=== PATIENT | female | born 1995 | race Caucasian/White ===

== ENCOUNTER 2016-10-21 11:18 | Emergency (ER) | payer OTHER ==
[~2016-10-21] VITALS: Ht 170.2 cm; Wt 86.6 kg
[2016-10-21 12:19] LABS: MICROSCOPIC INDICATED? NO (NO)
[2016-10-21] MEDS ORDERED: IBUPROFEN 800 MG TAB PO ONE (12:30)
[2016-10-21] MEDS ORDERED: ACETAMINOPHEN TAB 650MG DOSE (2X325MG) PO ONE (12:30)
[2016-10-21] MEDS ORDERED: NS 1,000 ML IV ONE (14:15)
--- NOTE | 2016-10-21 14:17 | REP ---
PELVIC SONOGRAPHY: HISTORY: Severe cervical and uterine pain, question IUD placement position. FINDINGS: Transabdominal and transvaginal scanning are performed. Uterine dimensions are normal at 6.4 x 3.2 x 4.6 cm. A shadowing echogenic structure in the endometrium representing the IUD is seen in a linear fashion in the upper fundus. This does appear to extend beyond the confines of the endometrium in the fundal myometrium. Furthermore we were not able to define the T-shaped to the IUD. Rather it appeared simply linear. We could not see the crossbars. Trace of free fluid is seen. Normal ovaries are seen. Right ovary dimensions are 3.5 x 2.7 x 3.4 cm. Left ovary measures 2.4 x 2.4 by low 2.0 cm. IMPRESSION: A linear limb of an IUD is felt to be in the upper uterine fundus penetrating into the myometrium. The "T" cross member of the IUD could not be identified. KUB could be considered to confirm the shape of the IUD. Normal ovaries. No abnormal fluid collection. Signed by Eder Parekh MD 10/21/2016 03:25 P
[2016-10-21 14:53] LABS: BASO % 0.2 % (0.0-1.0); EOS # 0.1 K/mm3 (0.0-0.50); EOS % 1.3 % (0.0-3.0); LARGE UNSTAINED CELL # 0.1 K/mm3 (0.0-0.4); LYMPH # 1.4 K/mm3 (1.5-6.5); LYMPH % 12.2 % (24.0-44.0); MEAN CORPUSCULAR HEMOGLOBIN 31.6 pg (27.0-33.0); MEAN CORPUSCULAR HGB CONC 34.8 g/dl (32.0-36.5); MEAN CORPUSCULAR VOLUME 90.8 fl (80.0-96.0); MONO # 0.5 K/mm3 (0.0-0.8); MONO % 4.5 % (0.0-5.0); NEUTROPHILS # 8.5 K/mm3 (1.8-7.7); NEUTROPHILS % 80.8 % (36.0-66.0); PLATELET COUNT, AUTOMATED 236 k/mm3 (150-450); RED CELL DISTRIBUTION WIDTH 12.8 % (11.5-14.5); WHITE BLOOD COUNT 10.6 K/mm3 (4.0-10.0)
[2016-10-21 15:08] LABS: ANION GAP 8 MEQ/L (8-16); BLOOD UREA NITROGEN 13 MG/DL (7-18); CALCIUM LEVEL 8.9 MG/DL (8.5-10.1); CARBON DIOXIDE LEVEL 27 MEQ/L (21-32); CHLORIDE LEVEL 108 MEQ/L (98-107); CREATININE FOR GFR 0.59 MG/DL (0.55-1.02); GLOMERULAR FILTRATION RATE > 60.0 (>60); GLUCOSE, FASTING 82 MG/DL (70-105); POTASSIUM SERUM 4.2 MEQ/L (3.5-5.1); SODIUM LEVEL 143 MEQ/L (136-145)
[2016-10-21] MEDS ORDERED: PERC5TAB12 PO (15:49)
[2016-10-21] MEDS ORDERED: IBUP-1022 PO (15:49)
[2016-10-21 15:57] VITALS: BP 118/75
== END 2016-10-21 16:04 | disposition home or self-care (01) ==
LOC: M ED 11:18
DX: T83.32XA Displacement of intrauterine contraceptive device, initial encounter (principal); R10.2 Pelvic and perineal pain; Y83.1 Surgical operation with implant of artificial internal device as the cause of abnormal reaction of the patient, or of later complication, without mention of misadventure at the time of the procedure
CPT/HCPCS: 76830; 76856; 80048; 81001; 85025; 87088; 87186; 87210; 87491; 87591; 93976; 99283; G0463

== ENCOUNTER 2016-10-23 10:36 | Day surgery (SDC) | payer OTHER ==
--- NOTE | 2016-10-22 12:34 | HPE ---
DATE OF ADMISSION: 10/23/2016 This lady was seen at the request of the emergency room physician. She is a 21-year-old 2, para 2, who came through emergency with severe lower abdominal pain and uterine pain post intercourse. She describes the pain as 10 out of 10. She has had an intrauterine contraceptive device (IUCD) in place since the delivery of her last baby in 2016, and was an uneventful placement of a Mirena IUCD. The rest of the history is unremarkable. On examination today, she is in moderate distress. Vital signs are appropriate. She had had a previous pelvic examination by the emergency room physician and, therefore, that was not repeated. She did have an ultrasound which suggested the uterine dimensions were normal at 6.4 x 3.2 x 4.6, shadowing echogenic structure, representing an intrauterine device (IUD) was in the upper fundus and extends beyond the confines of the endometrium into the fundal myometrium. Apparently, one of the bars appears to be embedded into the myometrium. Right ovary and left ovary appeared to be normal. There was unremarkable mention of the bladder. This patient did mention that she had some significant difficulty when she voided. There was considerable pain, but after taking some Advil and ibuprofen, the pain somewhat resolved to about a 3 out of 10. The rest of the examination is unremarkable. She is normocephalic, atraumatic. Neck: Full range of motion. Pupils equal and reactive to light. Distal pulses are symmetric. No evidence of deep venous thrombosis (DVT), pulmonary embolus (PE) or superficial phlebitis. Chest is clear bilaterally to bases. No wheezes or rhonchi. She has a soft abdomen, does have some tenderness in the lower symphysis pubis area. Four quadrant bowel sounds are noted. She has no rashes, lesions, or pruritus. No arthralgia or myalgia. She no complaints of cough, wheezes, shortness of breath, or dyspnea on exertion. No allergies. No palpitations or chest pain. She is not bleeding, has no vaginal discharge. She is normocephalic. No history of incontinence, urgency, or frequency. No nausea, vomiting, diarrhea, or constipation. No diabetic issues. Gyne history is unremarkable. She had a Pap smear 2 years ago, which was normal. She had an IUCD placed 6 weeks after spontaneous vaginal delivery. PAST MEDICAL AND SURGICAL HISTORY: Unremarkable. FAMILY HISTORY: Is noncontributory. She does not smoke, drink, or abuse drugs. She is to a soldier, and there is no domestic violence. In summary, we have an acute onset of lower abdominal pain documented perforating or imbedded IUCD in the uterine fundus. Our plan of action is to do a diagnostic laparoscopy under direct vision, hysteroscopy, dilation and curettage (D and C), removal of IUCD. After explaining the risks and benefits of surgery including hemorrhage, infection, perforation, , reoperation, inability to complete the procedure, both her and her expressed understanding of the options, signed and witnessed a consent form. She is booked for the next available opening which is 10/23/2016. We have counseled her regarding acute onset of pain, bleeding, shortness of breath, difficulty in voiding, to return immediately to the emergency room to be evaluated and possibly done as an emergency procedure.
[~2016-10-23] VITALS: Ht 170.2 cm; Wt 86.2 kg
[~2016-10-23 10:36] MED LIST: IBUP-1022 PO; PERC5TAB12 PO
[2016-10-23] MEDS ORDERED: LR 1,000 ML IV ONE (10:45)
[2016-10-23] MEDS ORDERED: ACETAMINOPHEN 650 MG SUPP PR ONE (11:00)
[2016-10-23] MEDS ORDERED: SODIUM CHLORIDE 0.9% 1000 ML IV ONE (11:00)
[2016-10-23 11:10] LABS: MEAN CORPUSCULAR HGB CONC 35.7 g/dl (32.0-36.5); MEAN CORPUSCULAR VOLUME 89.7 fl (80.0-96.0); RED CELL DISTRIBUTION WIDTH 12.4 % (11.5-14.5); WHITE BLOOD COUNT 4.2 K/mm3 (4.0-10.0)
[2016-10-23] MEDS ORDERED: fentaNYL 100 MCG/2 ML INJECTION (J3010) As Ordered ONE ×2 (11:30→11:31)
[2016-10-23] MEDS ORDERED: MIDAZOLAM INJ 2 MG/2 ML VIAL (J2250) As Ordered ONE (11:30)
[2016-10-23] MEDS ORDERED: ONDANSETRON 4MG/2ML VIAL (J2405) As Ordered ONE ×2 (11:31→13:43)
[2016-10-23] MEDS ORDERED: KETOROLAC 60 MG/2 ML VIAL (J1885) As Ordered ONE (11:31)
[2016-10-23] MEDS ORDERED: ROCURONIUM BROMIDE 50 MG/5 ML VIAL/SYRINGE As Ordered ONE (11:31)
[2016-10-23] MEDS ORDERED: PROPOFOL 200 MG/20 ML VIAL As Ordered ONE (11:31)
[2016-10-23] MEDS ORDERED: LIDOCAINE 2% INJ 100 MG/5 ML SDV (FOR ANES.) As Ordered ONE (11:31)
[2016-10-23] MEDS ORDERED: NS 1,000 ML IV SCH (12:00)
[2016-10-23] MEDS ORDERED: ACETAMINOPHEN 650 MG SUPP As Ordered ONE (12:16)
[2016-10-23] MEDS ORDERED: METHYLENE BLUE 0.5% (5MG/ML) 10 ML AMP (PROVAYBLUE)(Q9968 PER 1MG) As Ordered ONE (12:16)
[2016-10-23] MEDS ORDERED: BUPIVACAINE HCL 0.5% 30 ML VIAL As Ordered ONE (12:16)
[2016-10-23] MEDS ORDERED: NEOSTIGMINE 1MG/ML 5 ML SYRINGE (J2710) As Ordered ONE (13:22)
[2016-10-23] MEDS ORDERED: GLYCOPYRROLATE INJ 0.2 MG/ML 2 ML VIAL As Ordered ONE (13:22)
[2016-10-23] MEDS ORDERED: PERCOCET 5MG/325MG TAB As Ordered ONE (13:50)
[2016-10-23] MEDS ORDERED: fentaNYL 100 MCG/2 ML INJECTION (J3010) IV PRN (14:00)
[2016-10-23] MEDS ORDERED: HYDROmorphone HCL 1 MG/ML SYRINGE (J1170) IV PRN (14:00)
[2016-10-23] MEDS ORDERED: PERCOCET 5MG/325MG TAB PO PRN (14:00)
[2016-10-23] MEDS ORDERED: LR 1,000 ML IV SCH (14:00)
[2016-10-23] MEDS ORDERED: ONDANSETRON 4MG/2ML VIAL (J2405) IV PRN (14:00)
[2016-10-23 14:50] VITALS: BP 110/69
[2016-10-23] MEDS ORDERED: IBUPROFEN 800 MG TAB PO SCH (20:00)
--- NOTE | 2016-11-05 06:02 | RO ---
DATE OF PROCEDURE: 10/23/2016 PREOPERATIVE DIAGNOSIS: Impacted intrauterine contraceptive device (IUCD). POSTOPERATIVE DIAGNOSIS: Impacted intrauterine contraceptive device (IUCD). OPERATION PROPOSED: Diagnostic laparoscopy, direct visualization cystoscopy, hysteroscopy, dilation and curettage (D and C) removal of IUCD. OPERATION PERFORMED: Cystoscopy, hysteroscopy, removal of IUCD. SURGEON: Dr. Quan Kelly DIGITIZER: ANESTHESIA: General. ESTIMATED BLOOD LOSS: Less than 20 mL. After adequate time-out and adequate anesthesia, prepped, draped in lithotomy position, Beebe catheter was initially placed in the bladder. Weighted speculum in vagina. Single-tooth tenaculum on the anterior lip of the cervix. We could not visualize the strings of the IUCD and therefore we took the Beebe catheter out. We cystoscoped the patient to evaluate if the IUCD had impacted on the bladder. We could see indentation of the IUCD in front of the bladder posterior wall, but it did not perforate into the bladder. We then removed the cystoscope. We used 100 mL in and 100 mL out, replaced the Beebe catheter in there and then with the cystoscope the uterus was sounded to a depth of 7 cm. The hysteroscope was introduced and panoramic review revealed the IUCD, the T part which is the two arms, were outside of the uterus. The downward part we could visualize. Because we could visualize it, we did not require to do the laparoscopy. We did under direct vision pull out the IUCD. We could see the hole where the IUCD had perforated through the uterus, very small. With the hysteroscope, we dilated it up. There was no evidence of active bleeding. When we decreased the pressure, we noticed that the hole had resolved and closed down on its own and there was no evidence of bleeding from the intrauterine wall. With that done, we used 150 mL in and 50 mL out. All instruments were removed. The Beebe catheter was removed. The IUCD was sent to pathology under separate cover. The patient sent to recovery in good condition.
== END 2016-10-23 14:57 | disposition home or self-care (01) ==
LOC: M SDC 10:36
PROVIDERS: ATTEND Obstetrics & Gynecology
DX: T83.32XA Displacement of intrauterine contraceptive device, initial encounter (principal); Y76.2 Prosthetic and other implants, materials and accessory obstetric and gynecological devices associated with adverse incidents
CPT/HCPCS: 36415; 52000; 58301; 58555; 84702; 85027; 88300; J2250; J2405; J2710; J3010

== ENCOUNTER 2018-07-18 12:43 | Emergency (ER) | payer OTHER ==
[~2018-07-18] VITALS: Ht 170.2 cm; Wt 89.5 kg
[2018-07-18 15:10] LABS: BASO % 0.3 % (0.0-1.0); EOS % 0.4 % (0.0-3.0); HEMATOCRIT 39.2 % (36.0-47.0); HEMOGLOBIN 13.3 g/dl (12.0-15.5); LYMPH # 1.7 10^3/uL (1.5-6.5); LYMPH % 22.1 % (24.0-44.0); MEAN CORPUSCULAR HEMOGLOBIN 31.7 pg (27.0-33.0); MEAN CORPUSCULAR HGB CONC 33.9 g/dl (32.0-36.5); MEAN CORPUSCULAR VOLUME 93.6 fl (80.0-96.0); MONO # 0.4 10^3/uL (0.0-0.8); MONO % 4.7 % (0.0-5.0); NEUTROPHILS # 5.7 10^3/uL (1.8-7.7); NEUTROPHILS % 72.4 % (36.0-66.0); PLATELET COUNT, AUTOMATED 256 10^3/uL (150-450); RED BLOOD COUNT 4.19 10^6/uL (4.00-5.40); WHITE BLOOD COUNT 7.9 10^3/uL (4.0-10.0)
[2018-07-18] MEDS ORDERED: PRENTAB53 PO (15:26)
[2018-07-18] MEDS ORDERED: ACET-861 PO (15:26)
[2018-07-18 16:06] LABS: BLOOD UREA NITROGEN 6 MG/DL (7-18); CALCIUM LEVEL 8.7 MG/DL (8.5-10.1); CARBON DIOXIDE LEVEL 27 MEQ/L (21-32); CHLORIDE LEVEL 106 MEQ/L (98-107); CREATININE FOR GFR 0.55 MG/DL (0.55-1.30); GLOMERULAR FILTRATION RATE > 60.0 (>60); GLUCOSE, FASTING 87 MG/DL (70-100); HCG, SERUM QUANTITATIVE 28228 MIU/ML; POTASSIUM SERUM 3.9 MEQ/L (3.5-5.1); SODIUM LEVEL 137 MEQ/L (136-145)
[2018-07-18] MEDS ORDERED: METOCLOPRAMIDE INJ 10MG/2ML VIAL (J2765) IV ONE (16:15)
[2018-07-18] MEDS ORDERED: NS 1,000 ML IV ONE (16:15)
--- NOTE | 2018-07-18 17:55 | REP ---
FIRST TRIMESTER ULTRASOUND: Real-time sonographic evaluation of the gravid uterus is performed utilizing transabdominal technique. There is a single living intrauterine gestation. The estimated gestational age is 5 weeks 5 days based on a crown rump length of 2 mm. EDC 03/15/2019. heart rate 106 beats per minute. Subchorionic hemorrhage is seen measuring 2.3 x 0.8 x 0.8 cm. Complex corpus luteum of the left ovary is noted approximately 2.2 cm in diameter. There is no torsion, with blood flow seen in the left ovary with duplex Doppler evaluation. Electronically Signed by Sebastian Francois MD 07/18/2018 07:55 P
[2018-07-18 18:43] VITALS: BP 107/65
[2018-07-18] MEDS ORDERED: REGL10TA6 PO (18:44)
[2018-07-18 20:03] LABS: CHLAMYDIA DNA AMPLIFICATION NEGATIVE (NEGATIVE); GC DNA AMPLIFICATION NEGATIVE (NEGATIVE)
== END 2018-07-18 19:28 | disposition home or self-care (01) ==
LOC: M ED 12:43
DX: O26.91 Pregnancy related conditions, unspecified, first trimester (principal); O26.891 Other specified pregnancy related conditions, first trimester; Z3A.01 Less than 8 weeks gestation of pregnancy; Z79.899 Other long term (current) drug therapy
CPT/HCPCS: 76801; 80048; 81001; 84702; 85025; 87210; 87491; 87591; 93976; 96361; 96374; 99284; J2765

== ENCOUNTER 2019-02-11 22:32 | Outpatient (CLI) | payer OTHER ==
[~2019-02-11] VITALS: Ht 170.2 cm; Wt 101.6 kg
[~2019-02-11 22:32] MED LIST changes: +ACET-861 PO; +PRENTAB53 PO; +REGL10TA6 PO
[2019-02-11 22:46] VITALS: BP 111/64
[2019-02-11] MEDS ORDERED: PEPC1TAB5 PO (22:52)
[2019-02-12 00:29] LABS: APPEARANCE, URINE CLEAR (CLEAR); BACTERIA, URINE AUTO NEGATIVE (NEGATIVE); BILIRUBIN, URINE AUTO NEGATIVE (NEGATIVE); BLOOD, URINE BLOOD NEGATIVE (NEGATIVE); COLOR, URINE STRAW (YELLOW); GLUCOSE, URINE (UA) AUTO NEGATIVE (NEGATIVE); KETONE, URINE AUTO NEGATIVE (NEGATIVE); LEUKOCYTE ESTERASE, URINE AUTO NEGATIVE (NEGATIVE); NITRITE, URINE AUTO NEGATIVE (NEGATIVE); PROTEIN, URINE AUTO NEGATIVE (NEGATIVE); RBC, URINE AUTO 0 /HPF (0-3); SPECIFIC GRAVITY URINE AUTO 1.005 (1.002-1.035); SQUAMOUS EPITHELIAL CELL UR AU 1 /HPF (0-6); UROBILINOGEN, URINE AUTO 0.2 mg/dL (0.0-2.0); WBC, URINE AUTO 0 /HPF (0-3)
[2019-02-12 00:38] VITALS: BP 100/62
[2019-02-12 02:33] VITALS: BP 112/73
--- NOTE | 2019-02-12 02:44 | IPNPDOC ---
Text Note Date of Service The patient was seen on 02/12/19. NOTE Triage Note Sabrina is a 23yo with SIUP at 35w3d presenting with ctx and pelvic pressure. She states ctx are not very strong, but persistent over several hours. She had intercourse yesterday morning. No overt LOF, but states a couple occasions over past two days she has "leaked a little" onto her underwear and chalked it up to some urinary incontinence. No vaginal bleeding. Good movement. No emesis/diarrhea prior to arrival, but in triage between cervix checks she did have an episode of diarrhea. No fevers/chills. 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 Swab obtained. GBS swab obtained. SCE: 2/75/-3, repeated over 2hr and unchanged TAUS: berrios IUP with cephalic presentation, SHANDA 12cm, +FCA, +FM, fundal placenta Cat I FHRT with bl 120's, +accels, -decels, mod brad [place]: very occasional ctx Labs: Urinalysis negative BLAIR/WP: no evidence of budding yeast/hyphae, no clue cells, no trichomonas Negative nitrazine Assessment: Sabrina is a 23yo with SIUP at 35w3d with NO e/o PTL or PPROM based on unchanged SCE 2/75/-3, negative nitrazine/ferning/pooli ng/valsalva, SHANDA 12cm. No laboratory e/o infection. Benign exam. Vitals wnl. Reassuring status. Plan: -Safe for discharge home. Patient instructed to keep routine OB visit on 02/15 -Discussed return precautions, especially for increasing strength and closer interval of ctx, LOF, fever/chills, anything concerning -Discussed increasing hydration and BRAT diet Dr. Sybil Pineda MD VS,Iris, I+O VS, Iris, I+O Vital Signs Date Time Temp Pulse Resp B/P (MAP) Pulse Ox O2 Delivery O2 Flow Rate FiO2 02/11/19 22:46 97.9 100 16 111/64 (80) Sybil Pineda MD Feb 12, 2019 02:44
== END 2019-02-12 02:40 | disposition home or self-care (01) ==
LOC: M LDO 22:32
PROVIDERS: ATTEND Obstetrics & Gynecology
DX: O99.89 Other specified diseases and conditions complicating pregnancy, childbirth and the puerperium (principal); R10.2 Pelvic and perineal pain; Z3A.35 35 weeks gestation of pregnancy
CPT/HCPCS: 59025; 76815; 81001; 87081; 87186; G0378; G0463

== ENCOUNTER 2019-02-27 05:36 | Inpatient (IN) | payer OTHER ==
[~2019-02-27] VITALS: Ht 170.2 cm; Wt 102.3 kg
[2019-02-27] VITALS (14 sets, daily range): BP systolic 100–156; BP diastolic 58–96
[~2019-02-27 05:36] MED LIST changes: +PEPC1TAB5 PO
[2019-02-27] MEDS ORDERED: PROMETHAZINE 25 MG TAB PO PRN (06:00)
[2019-02-27] MEDS ORDERED: NALBUPHINE HCL 10 MG/ML AMP (J2300) IV ONE (06:30)
[2019-02-27] MEDS ORDERED: PROMETHAZINE INJ 25 MG/ML VIAL (J2550) IV ONE (06:30)
[2019-02-27] MEDS ORDERED: NALBUPHINE HCL 10 MG/ML AMP (J2300) IM ONE (06:30)
[2019-02-27] MEDS ORDERED: LR 1,000 ML IV ONE (06:30)
[2019-02-27] MEDS ORDERED: LR 1,000 ML IV SCH ×2 (06:30→07:00)
--- NOTE | 2019-02-27 06:41 | IPNPDOC ---
Text Note Date of Service The patient was seen on 02/27/19. NOTE patient is a 23 yo @ 37+5wks gestation presents with concern for LOF around 0400 this am. She started having regular painful contractions after she ruptured. states she has intermittent trickle. denies VB. vitals :normal NAD, uncomfortable with contractions abd: gravid, soft, nt, cephalic speculum exam: small amount of fluid in vault, neg valsalva ce: 3/-1 neg ferning fht: 140/mod brad/pos accel/no decel toco: ctx q 2-4mins a/p patient in early labor. neg exam for ROM. patient is having uncomfortable contractions and requesting for pain medication. Will give IV pain meds. recheck in 2hrs, sooner as needed. DO KEN Bales LUAT N. DO Feb 27, 2019 06:41
[2019-02-27] MEDS ORDERED: PENICILLIN G POTASSIUM IV 5 MU in D5W MINI-BAG PLUS 100 ML IV STA (06:49)
[2019-02-27 06:51] LABS: HEMATOCRIT 32.6 % (36.0-47.0); HEMOGLOBIN 11.3 g/dl (12.0-15.5); MEAN CORPUSCULAR HEMOGLOBIN 32.2 pg (27.0-33.0); MEAN CORPUSCULAR HGB CONC 34.7 g/dl (32.0-36.5); MEAN CORPUSCULAR VOLUME 92.9 fl (80.0-96.0); PLATELET COUNT, AUTOMATED 206 10^3/uL (150-450); RED BLOOD COUNT 3.51 10^6/uL (4.00-5.40); WHITE BLOOD COUNT 11.4 10^3/uL (4.0-10.0)
--- NOTE | 2019-02-27 07:07 | HPEPDOC ---
Obstetrical History & Physical General Date of Admission Feb 27, 2019 at 06:51 History of Present Illness patient silvio 23 yo @ 37+5wks with regular painful contraction and possible ROM around 0400. Patient ROM exam was positive for fluid in vagina with neg valsalva and ferning. She made cervical change from 3cm to 4cm within 30minutes while in triage. Chief Complaint: Contractions, term Information Provided By: Patient Age: 23 : 3 Term: 2 Pre-term: 0 Abortions: 0 Livin Care Care: Good Care Dating Final EDC: Mar 15, 2019 Final EDC for Daily Update: Mar 15, 2019 Final EDC by: LMP, 1st trimester (US) Past Medical History Past Obstetrical History : Past Obstetrical History: Multigravida ( x 2) SKI GUIDE History: No pertinent history Past Medical History Surgical History: Denies/None Family History Significant Family History: No pertinent family hx Social History Marital Status: Family situation: Spouse/partner home * Smoker: non-smoker Alcohol: Denies Drugs: denies Imunizations Tdap status: current Influenza Status: current Allergies Coded Allergies: No Known Allergies (Unverified , 10/23/16) Medications Scheduled Acetaminophen (Acetaminophen) 500 Mg Tablet, 1,000 MG PO BID for pain Famotidine (Pepcid) 20 Mg Tablet, 20 MG PO QHS Vit,Calc76/Iron/Folic (Prenatabs Rx Tablet) 1 Each Tablet, 1 TAB PO DAILY Physical Examination Physical Examination GENERAL: Alert and oriented times three. BREAST: . ABDOMEN: Gravid and non-tender to touch. FETUS: Is vertex (VTX) by sterile vaginal examination (SVE), fetus is vertex (VTX) by Tam. HEART RATE: Regular rate and rhythm. LUNGS: Clear to auscultation (CTA). EXTREMITIES: No edema/erythema/tenderness. EFW: 3400gm by tam ce: 4/80/-1 Laboratory Data 24H LABS Laboratory Tests 2 02/27/19 06:39: Nucleated Red Blood Cells % (auto) 0.0 02/27/19 06:55: Serology Scanned Report Hepatitis B Testing CBC/BMP Laboratory Tests 02/27/19 06:39 Pertinent Laboratoy Data Blood Type: O+ RBC Antibody Screen: Negative HIV: Negative Hepatitis B: Negative Rapid Plasma Reagin: Nonreactive Rubella: Immune Varicella: Immune Chlamydia/Gonorrhea: Negative Group B Streptococcus: Positive Anatomy Ultrasound Placenta Location: Posterior Placenta Previa: No Vaginal Examination Dilation: 4 cm Effacement: 80% Station: -1 Cervical Consistency: Soft Cervical Position: Middle Presentation: Cephalic presentation Assessment Heart Rate (FHR): 125 Variability: Moderate Accelerations: Present Decelerations: None Tocometer Contractions: Yes Frequency: regular, every 1-3 min., every 2-2 min. Assessment/Plan Assessment patient is a 23 yo @ 37+5wks gestation in active labor. Plan Admit and orient. Fur Weigher and consent. Diet: clears PCN for Group B Streptococcus (GBS) positive Labs and intravenous (IV) per unit protocol. anesthesia consult for vaginal delivery. Pelvis proven JEAN CLAUDE ROGERS DO Feb 27, 2019 07:07
[2019-02-27] MEDS ORDERED: FENTANYL 2MCG/ML ROPIVACAINE 0.2% IN 0.9% NACL 100ML IVBAG As Ordered ONE (07:25)
[2019-02-27] MEDS ORDERED: ACETAMINOPHEN TAB 650MG DOSE (2X325MG) PO PRN (08:00)
[2019-02-27] MEDS ORDERED: IBUPROFEN 600 MG TAB PO PRN (08:00)
[2019-02-27] MEDS ORDERED: RHOGAM 300 MCG (1500 IU) INJ (J2790) IM SCH (08:00)
[2019-02-27] MEDS ORDERED: ACETAMINOPHEN 500 MG TAB PO PRN (08:00)
[2019-02-27] MEDS ORDERED: OXYTOCIN DRIP 30 UNITS in IV 1 EA IV SCH (08:04)
--- NOTE | 2019-02-27 08:13 | DNPDOC ---
[facility] Delivery Note Delivery Note DATE OF DELIVERY: 27Feb2019 at ~0800 PREDELIVERY DIAGNOSIS: 37+5 weeks gestation and active labor POST DELIVERY DIAGNOSIS: Delivered. PROCEDURE: Spontaneous vaginal delivery CVIR TECH: Dr. Taylor ANESTHESIA: Epidural (though did not get medicine to work in time) ESTIMATED BLOOD LOSS: 200 mL. FINDINGS: Viable female infant, weight pending, Apgars 9/9 DELIVERY SUMMARY: Presented to room as patient felt strong urge to push. Fetus at +3 station. The bed was broken down and she was prepped for delivery. She began pushing and with excellent effort her infant delivered over only two sets of pushes. presentation was LEONA with restitution to LOT. The right anterior shoulder delivered with gentle traction followed easily by the remainder of the body. The was dried and stimulated on the field and a bulb suction was used. The infant was then placed on the maternal abdomen and cried vigorously. The three vessel cord was then clamped and cut by the FOB after appropriate time delay and under my direction. Third stage was then completed with gentle traction on the cord and it was productive of an intact placenta. The uterine fundus was firmed with massage and pitocin was admini stered via IV bolus. Inspection of the vagina, perineum, and cervix revealed no lacerations. The fundus was palpated again and was firm. Sponge, instrument, and needle counts were correct X2. Mother and infant stable when I left the room. DO RODNEY Flower CHRISTOPHER J. DO Feb 27, 2019 08:13
[2019-02-27] MEDS ORDERED: MEASLES,MUMPS,RUBELLA VACCINE INJ (MMR-II) (90707) SC SCH (08:15)
[2019-02-27] MEDS ORDERED: DIBUCAINE 1% OINTMENT 30GM TOP PRN (08:15)
[2019-02-27] MEDS ORDERED: diphenhydrAMINE INJ 50MG/ML VIAL (J1200) IV PRN (08:45)
[2019-02-27] MEDS ORDERED: EPIDURAL/PCA KEYS XX PRN (08:45)
[2019-02-27] MEDS ORDERED: ROPIVACAINE HCL IVBAG 200 ML EPIDURAL SCH (08:45)
[2019-02-27] MEDS ORDERED: ePHEDrine SULFATE 25 MG/5 ML(5MG/ML) SYRINGE IV PRN (08:45)
[2019-02-27] MEDS ORDERED: REFRIGERATOR IV KEYS XX PRN (08:45)
[2019-02-27] MEDS ORDERED: LACTATED RINGER'S 1000 ML IV PRN (08:45)
[2019-02-27] MEDS ORDERED: EPIDURAL COMMENT XX SCH (08:45)
[2019-02-27] MEDS ORDERED: NALOXONE INJ 0.4 MG/1 ML VIAL (J2310) IV PRN (08:45)
[2019-02-27] MEDS ORDERED: ONDANSETRON 4MG/2ML VIAL (J2405) IV PRN (08:45)
[2019-02-27] MEDS: PRENATAL VITAMINS CHEWABLE TABLET PO SCH (10:14)
[2019-02-27] MEDS: IBUPROFEN 800 MG TAB PO PRN ×2 (10:14→18:32)
[2019-02-27] MEDS ORDERED: FENTANYL/ROPIVACAINE/NACL BAG 100 ML EPIDURAL SCH (10:30)
[2019-02-27] MEDS ORDERED: PENICILLIN G POTASSIUM IV 2.5 MU in IV 1 EA IV SCH (11:00)
[2019-02-27] MEDS ORDERED: DOCUSATE SODIUM 100 MG CAP PO PRN (20:00)
[2019-02-28 05:44] VITALS: BP 104/66
--- NOTE | 2019-02-28 07:19 | IPNPDOC ---
Progress Note Date of Service: Feb 28, 2019 Progress Note Sabrina is a 23 yo G3 now P3 who underwent an uncomplicated yesterday morning at ~0800 after being admitted for active labor. Yesterday and last night there were no acute events after delivery. Ms. Cano reports feeling well this morning. She denies any severe pain, fevers/chills, SOB, chest pain, or dysuria. She is ambulating, voiding, tolerating a regular diet, and has minimal lochia. Vitals - VSS, afebrile, normotensive, non tachycardic General - Sitting up in bed, AAOX3, pleasant and conversant, NAD Abdomen - Fundus firm at U-1. No fundal tenderness Extremities - No edema Sabrina is doing well and is making an appropriate recovery. Will continue routine care. She was GBS positive but did not receive adequate treatment due to fast delivery. Thus, baby will be observed for at least another 24 hours. Will discharge home when baby is discharged. All questions answered. DO Brandon VS, I&O, 24H, Fishbone Vital Signs/I&O Vital Signs Date Time Temp Pulse Resp B/P (MAP) Pulse Ox O2 Delivery O2 Flow Rate FiO2 02/28/19 05:44 98.8 88 18 104/66 (79) Room Air I&O- Last 24 Hours up to 6 AM 02/28/19 06:00 Intake Total 1600 ml Output Total 500 ml Balance 1100 ml GILL STEVENS DO Feb 28, 2019 07:19
[2019-02-28] MEDS: PRENATAL VITAMINS CHEWABLE TABLET PO SCH (08:43)
[2019-02-28 17:48] VITALS: BP 112/72
[2019-02-28] MEDS: IBUPROFEN 800 MG TAB PO PRN (19:54)
[2019-03-01 06:10] VITALS: BP 111/70
[2019-03-01] MEDS ORDERED: DOCU100C16 PO (07:08)
[2019-03-01] MEDS ORDERED: IBUP80TA PO (07:08)
[2019-03-01] MEDS ORDERED: DIBU10OI TOP (07:08)
[2019-03-01] MEDS: PRENATAL VITAMINS CHEWABLE TABLET PO SCH (09:00)
--- NOTE | 2019-03-01 18:52 | DSES ---
DATE OF ADMISSION: 02/27/2019 DATE OF DISCHARGE: 03/01/2019 A 23-year-old 3, now para 3, admitted in labor with contractions, spontaneous rupture of members at 37 and 5 weeks of gestation, had a spontaneous vaginal delivery, female , 7 pounds, 5 ounces, scores of 9 and 9 at one and five minutes respectively. She went so quickly that her epidural did not take time to be effective. Group B Streptococcus (GBS) positive was not treated in time. Baby is being evaluated for GBS sepsis. Blood pressure 110/70, respirations 18, pulse 80, temperature is 99.0. Her admitting hemoglobin was 11.3, hematocrit 22.6 and platelets were 206. We discussed phlebitis, cystitis, mastitis, endometritis and cellulitis, diet, exercise, pain management, perineal, breast and wound care. The rest of the examination unremarkable. Normocephalic, atraumatic. Neck: Full range of motion. Pupils equal and reactive to light. Distal pulses are symmetric. No evidence of deep vein thrombosis (DVT), pulmonary embolism (PE) or superficial phlebitis. Chest is clear bilaterally to bases. No wheezes or rhonchi. No costovertebral angle (CVA) tenderness. Abdomen is soft. Uterus 2 below. Lochia is moderate. Four quadrant bowel sounds are noted. Perineum is intact. No rashes, lesions or pruritus. No arthralgia or myalgia. No complaint of joint pain. No complaint of cough, wheeze, shortness of breath or dyspnea on exertion. No evidence of incontinence, urgency or frequency. No nausea, vomiting, diarrhea or constipation. In summary, we have a term gestation, delivered a live female , plans on breast-feeding at discharge. Followup in six weeks with [facility]. All questions were answered.
== END 2019-03-01 13:45 | disposition home or self-care (01) | DRG 807 ==
LOC: M LDO 05:36 → M LDI 06:51 → M OBS 10:52
PROVIDERS: ADMIT Obstetrics & Gynecology; ATTEND Obstetrics & Gynecology
PROC: 10E0XZZ Delivery of Products of Conception, External Approach (ICD-10-PCS; principal; 2019-02-27)
DX: O62.3 Precipitate labor (principal); Z37.0 Single live birth; O99.824 Streptococcus B carrier state complicating childbirth; Z3A.37 37 weeks gestation of pregnancy

== ENCOUNTER 2019-04-14 10:26 | Emergency (ER) | payer OTHER ==
[~2019-04-14] VITALS: Ht 170.2 cm; Wt 93.2 kg
[~2019-04-14 10:26] MED LIST changes: +DIBU10OI TOP; +DOCU100C16 PO; +IBUP80TA PO
[2019-04-14] MEDS ORDERED: TRIA0.5O TOP (11:37)
[2019-04-14 11:46] VITALS: BP 115/69
== END 2019-04-14 11:45 | disposition home or self-care (01) ==
LOC: M ED 10:26
DX: R21 Rash and other nonspecific skin eruption (principal)

== ENCOUNTER → 2019-04-17 | Outpatient (CLI) | payer OTHER ==
[~2019-04-17] MED LIST changes: +TRIA0.5O TOP
[2019-04-17 08:22] LABS: HEMATOCRIT 36.7 % (36.0-47.0); HEMOGLOBIN 12.2 g/dl (12.0-15.5); MEAN CORPUSCULAR HGB CONC 33.2 g/dl (32.0-36.5); MEAN CORPUSCULAR VOLUME 93.4 fl (80.0-96.0); PLATELET COUNT, AUTOMATED 231 10^3/uL (150-450); RED BLOOD COUNT 3.93 10^6/uL (4.00-5.40); WHITE BLOOD COUNT 5.5 10^3/uL (4.0-10.0)
--- NOTE | 2019-04-17 09:24 | REP ---
FOCUSED RIGHT BREAST SONOGRAPHY: HISTORY: Right breast lumps. 7 weeks , lactating. Treated for mastitis, post antibiotics. Multiple small lumps in the right breast, positive family history breast carcinoma. There is apparently a medial skin rash on the right breast as well. Currently, the patient does not feel lumps in the right breast. FINDINGS: Whole breast sonographic scanning is performed. Fairly homogeneous background echotexture is seen. No cyst, mass, abscess, or architectural distortion is seen. IMPRESSION: BI-RADS category 1 negative findings. Clinical followup is advised. Electronically Signed by Eder Parekh MD 04/17/2019 11:06 A
== END ==
LOC: M RAD 06:34
PROVIDERS: ATTEND Obstetrics & Gynecology
DX: N63.0 Unspecified lump in unspecified breast (principal)